=== PATIENT | female | born 1995 | race Caucasian/White ===

== ENCOUNTER → 2016-08-24 | Outpatient (CLI) | payer OTHER ==
--- NOTE | 2016-08-24 22:21 | US ---
EXAMINATION TYPE: US OB >= 14 wk fetus DATE OF EXAM: 08/24/2016 4:30 PM COMPARISON: 04/21/2016 CLINICAL HISTORY: 21-year-old female O36.63X0 Large for dates; Large maternal body; patient is schedu led for on 09-12-2016; smoker TECHNIQUE: Transabdominal (TA) FINDINGS: GESTATIONAL AGE / DATING Physician Established: (36 weeks/6 days) EDC: 09/15/2016 Dates by LMP: (36 weeks/6 days) EDC: 09/15/2016 Dates by First Scan: (36 weeks/0 days) EDC: 09/21/2016 Dates by Current Scan: (35 weeks/4 days +/- 1W) EDC: 09/24/2016 SURVEY IUP: Single PLACENTA: Posterior PREVIA: No Previa. The caudal placental margin measures approximately 3.7 cm from the internal cervi yessi os. ANNIKA: 19.7 cm Normal CERVICAL LENGTH (transabdominal: norm > 3.0cm): 6.1 cm BIOMETRY PRESENTATION: cephalic LIE: oblique BPD: 8.8 cm 35 weeks / 5 days HC: 32.6 cm 37 weeks / 0 days AC: 31.6 cm 35 weeks / 4 days FL: 6.9 cm 35 weeks / 4 days ESTIMATED WEIGHT IN GRAMS: 2746 grams ESTIMATED WEIGHT IN LBS/OZS: 6 lbs. 1 oz. WEIGHT PERCENTAGE BASED ON ESTABLISHED DATES: 25.4% HC/AC: 1.03 Normal FL/AC: 21.87 Normal HEART RATE: 151 bpm RHYTHM: Normal MATERNAL WALL MEASUREMENT: 5.2 cm from skin to anterior uterine wall (if exam limited due to body hab itus). TECHNOLOGIST IMPRESSION: Single, live, IUP,35 weeks/4 days) EDC: 09/24/2016, HR 151BPM. IMPRESSION: 1. Single live intrauterine with estimated gestational age of 36 weeks 6 days by LMP. [facility], [place] nt ultrasound biometry is smaller and just discordant (35 weeks 4 days +/- 1W) placing the child at t he 25th percentile for weight. We do note that as compared to 04/21/2016, EFW% has increased from the 8th percentile. 2. Posterior placenta with the placental tip measuring 3.7 cm from the internal cervical os.
== END | disposition home or self-care (01) ==
LOC: RADUSWWP 14:24
PROVIDERS: ATTEND Obstetrics & Gynecology
DX: O36.63X0 Maternal care for excessive fetal growth, third trimester, not applicable or unspecified (principal); Z3A.35 35 weeks gestation of pregnancy
CPT/HCPCS: 76805

== ENCOUNTER 2016-09-12 06:10 | Inpatient (IN) | payer OTHER ==
[2016-09-12] MEDS ORDERED: CITRIC ACID-SODIUM CITRATE 15 ML CUP PO ONE (06:22)
[2016-09-12] MEDS ORDERED: ceFAZolin 3 GM in SODIUM CHLORIDE 0.9% 100 ML IVPB ONE (06:22)
[2016-09-12 06:31] VITALS: BMI 48.0
[2016-09-12] MEDS: LACTATED RINGERS 1,000 ML IV ONE ×2 (06:32→07:57)
[2016-09-12 07:17] LABS: Basophils % (A) 0 %; CH 26.4; CHCM 30.9; Eosinophils # (A) 0.1 k/uL (0-0.7); Eosinophils % (A) 1 %; HCT 33.1 % (34.0-46.0); HDW 2.59; HGB 10.6 gm/dL (11.4-16.0); Hypochromasia Slight; Luc # (Auto) 0.47; Luc % (Auto) 4; Lymphocytes # (A) 1.6 k/uL (1.0-4.8); Lymphocytes % (A) 15 %; MCH 27.5 pg (25.0-35.0); MCHC 32.1 g/dL (31.0-37.0); MCV 85.6 fL (80.0-100.0); Mean Platelet Volume 8.8; Monocytes # (A) 0.5 k/uL (0-1.0); Monocytes % (A) 4 %; Neutrophils # (A) 8.2 k/uL (1.3-7.7); Neutrophils % (A) 75 %; RBC 3.86 m/uL (3.80-5.40); RDW 14.4 % (11.5-15.5); WBC 10.9 k/uL (4.0-11.0); WBC (Perox) 11.88
[2016-09-12] MEDS ORDERED: KETOROLAC 30 MG/ML 1 ML VIAL ONE (08:03)
[2016-09-12] MEDS ORDERED: ePHEDrine 50 MG/ML 1 ML AMP ONE (08:03)
[2016-09-12] MEDS ORDERED: OXYTOCIN 10 UNIT/ML 1 ML VIAL IM ONE (08:03)
[2016-09-12] MEDS ORDERED: ONDANSETRON 4 MG/2 ML VIAL ONE (08:03)
[2016-09-12] MEDS ORDERED: NALOXONE 0.4 MG/ML 10 ML VIAL IVP PRN (08:37)
[2016-09-12] MEDS ORDERED: diphenhydrAMINE 25 MG CAP PO PRN (08:37)
[2016-09-12] MEDS ORDERED: SIMETHICONE 80 MG CHEWABLE PO PRN (08:37)
[2016-09-12] MEDS ORDERED: ACETAMINOPHEN TAB 325 MG TAB PO PRN (08:37)
[2016-09-12] MEDS ORDERED: LANOLIN CREAM 5 GM TUBE TOPICAL PRN (08:37)
[2016-09-12] MEDS ORDERED: ZOLPIDEM 5 MG TAB PO PRN (08:37)
[2016-09-12] MEDS ORDERED: diphenhydrAMINE 50 MG/ML 1 ML VIAL IVP PRN ×2 (08:37)
[2016-09-12] MEDS ORDERED: diphenhydrAMINE 50 MG CAP PO PRN (08:37)
[2016-09-12] MEDS ORDERED: METOCLOPRAMIDE 5 MG/ML 2 ML VIAL IVP PRN (08:37)
[2016-09-12] MEDS ORDERED: HYDROmorphone PCA 5 MG/25 ML SYRINGE IV PRN (08:37)
[2016-09-12] MEDS ORDERED: ONDANSETRON 4 MG/2 ML VIAL IVP PRN (08:37)
--- NOTE | 2016-09-12 08:42 | P.OP ---
Date of Procedure: 09/12/16 Preoperative Diagnosis: 1. at 39 weeks 4 days 2. previous Postoperative Diagnosis: 1. at 39 weeks 4 days 2. previous Procedure(s) Performed: Repeat low transverse Anesthesia: spinal Surgeon: Hilary Hernandez Pressure Welder #1: Blane Reyes Estimated Blood Loss (ml): 800 IV fluids (ml): 650 Urine output (ml): 100 Pathology: other (Placenta) Condition: stable Disposition: floor Operative Findings: Viable male, Apgars 9, 9, weight 6 lbs. 14 oz. Description of Procedure: Patient was taken to the operating room where spinal anesthesia was found be adequate. She was prepped and draped in normal sterile fashion in dorsal supine position with a leftward tilt. Pfannenstiel skin incision was made the scalpel and carried through to the underlying layer of fascia with the scalpel. Fascia was incised in midline and carried bilaterally with the Schreiber scissors. The superior aspect of the fascial incision was grasped with Girish clamps elevated and the underlying rectus muscles dissected off with the Schreiber's. Attention was then turned to inferior aspect of same incision which in a similar fashion was grasped tented up and the underlying rectus muscles dissected off with the Schreiber's. The rectus muscles were the midline and the peritoneum was identified tented up and entered sharply with the scalpel. The incision was extended superiorly and inferiorly with good visualization of the bladder. The bladder blade was inserted and the vesicouterine peritoneum was incised the Metzenbaums then carried bilaterally and bladder flap created digitally. A low transverse incision was then made on the uterus with the scalpel. This was carried bilaterally and digital manner. 's head delivered atraumatically, nose and mouth bulb suctioned, cord clamped and cut, handed off to waiting nurses. Apgars 9,9 weight 6 lbs. 14 oz. Placenta delivered manually, intact with three-vessel cord. The uterus is exteriorized and cleared of all clots and debris. The uterine incision was closed with 0 Vicryl in a running locked fashion. Second layer of the same sutures used in imbricating fashion to obtain excellent hemostasis. Bladder flap was then reapproximated using 2-0 Vicryl in a running fashion. Both ovaries and tubes appeared normal. The uterus was placed back into the abdomen. The peritoneum was reapproximated using 2-0 Vicryl in a running fashion. The muscles were reapproximated using 2-0 Vicryl in interrupted fashion. The fascia was reapproximated using 0 Vicryl in a running fashion. The subcutaneous tissues closed with 3-0 Vicryl running fashion. The skin was closed juan. Patient tolerated the procedure well, sponge and instrument counts were correct times 2 and she was taken to the recovery room in stable condition.
--- NOTE | 2016-09-12 08:46 | P.HPOB ---
History of Present Illness H&P Date: 09/12/16 Chief Complaint: repeat low transverse 21-year-old presents at 39 weeks and 4 days for repeat low transverse C- section. Review of Systems All systems: negative Constitutional: Denies chills, Denies fever Eyes: denies blurred vision, denies pain Ears, nose, mouth and throat: Denies headache, Denies sore throat Cardiovascular: Denies chest pain, Denies shortness of breath Respiratory: Denies cough Gastrointestinal: Denies abdominal pain, Denies diarrhea, Denies nausea, Denies vomiting Genitourinary: Denies dysuria, Denies hematuria Musculoskeletal: Denies myalgias Integumentary: Denies pruritus, Denies rash Neurological: Denies numbness, Denies weakness Psychiatric: Denies anxiety, Denies depression Endocrine: Denies fatigue, Denies weight change Past Medical History Past Medical History: No Reported History Additional Past Medical History / Comment(s): Obstetric history: First was a section for failure to progress. This is her second and she has had care with me since 6 weeks. A+, abs neg, Rub Imm, RPR Nr, Hep B neg. normal 1hr GTT. GBS neg. History of Any Multi-Drug Resistant Organisms: None Reported Past Surgical History: Section, Orthopedic Surgery Additional Past Surgical History / Comment(s): cyst removed from ovaries and screws in rt ankle Past Anesthesia/Blood Transfusion Reactions: No Reported Reaction Past Psychological History: No Psychological Hx Reported Smoking Status: Current every day smoker Past Alcohol Use History: None Reported Past Drug Use History: None Reported - Past Family History Father History Unknown: Yes Mother Family Medical History: No Reported History Medications and Allergies Home Medications Medication Instructions Recorded Confirmed Type Pnv with Ca,No.72/Iron/FA [Pnv 1 tab PO DAILY 09/07/16 09/12/16 History Plus Multivit Tab] Allergies Allergy/AdvReac Type Severity Reaction Status Date / Time morphine Allergy Rash/Hives, Verified 09/12/16 06:21 swelling Exam Osteopathic Statement: *. No significant issues noted on an osteopathic structural exam other than those noted in the History and Physical/Consult. - Vital Signs Vital signs: Vital Signs Temp Pulse Resp BP Pulse Ox 09/12/16 06:26 96.4 F L 82 15 131/58 96 Intake and Output 09/11/16 09/12/16 09/12/16 22:59 06:59 14:59 Other: Weight 127.006 kg Heart: Regular rate and rhythm Lungs: Clear to auscultation bilaterally Abdomen: Soft, nontender Extremities: Negative Homans sign Results Result Diagrams: 09/12/16 06:59 Abnormal Lab Results - Last 24 Hours (Table) 09/12/16 Range/Units 06:59 Hgb 10.6 L (11.4-16.0) gm/dL Hct 33.1 L (34.0-46.0) % Neutrophils # 8.2 H (1.3-7.7) k/uL Assessment and Plan (1) Previous section Status: Acute Plan: 1. Prep for repeat low transverse
[2016-09-12] MEDS ORDERED: NALOXONE 0.4 MG/ML 1 ML VIAL IV PRN (09:23)
[2016-09-12] MEDS: LACTATED RINGERS 1,000 ML IV SCH (12:26)
[2016-09-12] MEDS: KETOROLAC 30 MG/ML 1 ML VIAL IVP PRN ×2 (14:28→20:31)
[2016-09-13] MEDS: OXYTOCIN 30 UNITS/500 ML NS 30 UNIT in SALINE 1 500ML.BAG IV SCH ×2 (07:46→07:47)
[2016-09-13] MEDS: LACTATED RINGERS 1,000 ML IV SCH (07:46)
[2016-09-13] MEDS: SENNOSIDES-DOCUSATE SODIUM 1 EACH TAB PO SCH ×3 (07:47→20:36)
[2016-09-13 08:08] LABS: Basophils % (A) 0 %; CH 26.7; CHCM 31.5; Eosinophils # (A) 0.1 k/uL (0-0.7); Eosinophils % (A) 1 %; HCT 30.5 % (34.0-46.0); HGB 9.6 gm/dL (11.4-16.0); Hypochromasia Slight; Luc # (Auto) 0.19; Luc % (Auto) 2; Lymphocytes # (A) 1.4 k/uL (1.0-4.8); Lymphocytes % (A) 17 %; MCH 26.6 pg (25.0-35.0); MCHC 31.4 g/dL (31.0-37.0); MCV 84.9 fL (80.0-100.0); Mean Platelet Volume 9.9; Monocytes # (A) 0.4 k/uL (0-1.0); Monocytes % (A) 5 %; Neutrophils # (A) 6.2 k/uL (1.3-7.7); Neutrophils % (A) 74 %; RDW 14.6 % (11.5-15.5); WBC 8.3 k/uL (4.0-11.0); WBC (Perox) 8.85
--- NOTE | 2016-09-13 08:40 | P.PNOBGPC ---
Subjective - Subjective Principal diagnosis: S/P RLTCS POD #1 Interval history: PAtient seen and examined. Denies N/V, F/C, CP, SOB, calf pain. Patient reports: Reports appetite normal, Reports voiding normally, Reports pain well controlled, Reports ambulating normally : doing well Objective - Vital Signs Latest vital signs: Vital Signs Temp Pulse Resp BP Pulse Ox 09/13/16 04:00 98.1 F 62 18 127/61 98 09/12/16 23:54 98.4 F 64 18 128/64 97 09/12/16 20:00 98.3 F 67 18 134/75 97 09/12/16 16:00 98.1 F 65 16 112/51 97 09/12/16 12:00 97.1 F L 69 16 123/61 97 09/12/16 10:45 74 16 137/68 98 09/12/16 10:15 66 16 132/68 09/12/16 09:45 66 16 144/64 99 09/12/16 09:30 69 16 143/64 98 09/12/16 09:15 70 16 158/84 99 09/12/16 09:00 77 16 122/64 99 09/12/16 08:45 96.5 F L 88 16 142/65 100 Intake and Output 09/12/16 09/13/16 09/13/16 22:59 06:59 14:59 Intake Total 300 Output Total 1200 200 Balance -900 -200 Intake: Oral 300 Output: Urine 1200 Uretheral (Sharif) 300 Stool 200 Other: # Voids 1 - Exam Lungs: bilateral: normal Chest: Normal S1, Normal S2 Extremities: Present: normal Abdomen: Present: normal appearance, soft. Absent: distention, tenderness Incision: Present: normal, dry, intact Uterus: Present: normal, firm - Labs Labs: Abnormal Lab Results - Last 24 Hours (Table) 09/13/16 Range/Units 07:53 RBC 3.60 L (3.80-5.40) m/uL Hgb 9.6 L (11.4-16.0) gm/dL Hct 30.5 L (34.0-46.0) % Assessment and Plan (1) Previous section Current Visit: Yes Status: Resolved Code(s): Z98.891 - HISTORY OF UTERINE SCAR FROM PREVIOUS SURGERY SNOMED Code(s): 203075113 (2) S/P repeat low transverse Narrative/Plan: 1. continue pp care 2. d/c SECURITY REP and change to po pain meds. 3. increase ambulation Current Visit: Yes Status: Acute Code(s): Z98.891 - HISTORY OF UTERINE SCAR FROM PREVIOUS SURGERY SNOMED Code(s): 801926318
[2016-09-13] MEDS: Acetaminophen-Codeine 300-30mg TAB PO PRN ×3 (09:10→20:36)
--- NOTE | 2016-09-13 10:29 | P.PN ---
Progress Note - Text Postoperative day 1 status post section under spinal anesthesia, and intrathecal morphine given for postoperative analgesia, patient doing well, there is no anesthesia related complications, further management as per her primary team
[2016-09-13] MEDS: IBUPROFEN 600 MG TAB PO PRN ×2 (11:44→16:52)
[2016-09-14] MEDS: IBUPROFEN 600 MG TAB PO PRN (00:49)
[2016-09-14] MEDS: Acetaminophen-Codeine 300-30mg TAB PO PRN ×2 (06:19→11:02)
--- NOTE | 2016-09-14 08:00 | P.DS ---
Providers Date of admission: 09/12/16 06:10 Expected date of discharge: 09/14/16 Attending physician: Hilary Hernandez Primary care physician: Stated None - Discharge Diagnosis(es) (1) Previous section Current Visit: Yes Status: Resolved (2) S/P repeat low transverse Current Visit: Yes Status: Acute Hospital Course: Patient presented for RLTCS and underwent this procedure without complication. She had an uneventful post op course. Denies N/V, F/C, CP, SOB, calf pain. She will be discharged home POD #2 in stable condition to follow up with me in 1 week. Plan - Discharge Summary New Discharge Prescriptions: Acetaminophen-Codeine 300-30mg [Tylenol #3] 2 tab PO Q6H PRN #30 tablet PRN Reason: Pain Ibuprofen [Motrin] 600 mg PO Q6HR PRN #30 tab PRN Reason: Mild Pain Or Fever >= 100.5 Discharge Medication List Pnv with Ca,No.72/Iron/FA [Pnv Plus Multivit Tab] 1 tab PO DAILY [History] Acetaminophen-Codeine 300-30mg [Tylenol #3] 2 tab PO Q6H PRN #30 tablet [Rx] Ibuprofen [Motrin] 600 mg PO Q6HR PRN #30 tab 09/14/16 [Rx] Follow up Appointment(s)/Referral(s): Hilary Hernandez DO [Doctor of Osteopathic Medicine] - 1 Week Discharge Disposition: HOME SELF-CARE
[2016-09-14 09:46] VITALS: BP 141/75; PULSE 83; RESP 18; TEMP 98.6
[2016-09-14] MEDS: SENNOSIDES-DOCUSATE SODIUM 1 EACH TAB PO SCH (11:01)
== END 2016-09-14 11:22 | disposition home or self-care (01) | DRG 766 ==
LOC: 4FBP 06:10
PROVIDERS: ADMIT Obstetrics & Gynecology; ATTEND Obstetrics & Gynecology
PROC: 10D00Z1 Extraction of Products of Conception, Low, Open Approach (ICD-10-PCS; principal; 2016-09-12 08:13)
DX: O34.211 Maternal care for low transverse scar from previous cesarean delivery (principal); F17.200 Nicotine dependence, unspecified, uncomplicated; Z37.0 Single live birth; O99.334 Smoking (tobacco) complicating childbirth; Z3A.39 39 weeks gestation of pregnancy; Z88.5 Allergy status to narcotic agent
CPT/HCPCS: 85025; 86850; 86900; 86901; 88307

== ENCOUNTER → 2023-02-23 | Outpatient (CLI) | payer OTHER ==
[2023-02-23 13:40] LABS: Basophils # (A) 0.04 X 10*3/uL (0.00-0.10); Basophils % (A) 0.4 %; Eosinophils # (A) 0.11 X 10*3/uL (0.04-0.35); HCT 40.5 % (37.2-46.3); HGB 12.9 d/dL (12.0-15.0); Lymphocytes # (A) 2.82 X 10*3/uL (0.90-5.00); Lymphocytes % (A) 25.8 %; MCH 28.5 pg (27.0-32.0); MCHC 31.9 d/dL (32.0-37.0); MCV 89.4 FL (80.0-97.0); Mean Platelet Volume 12.5 FL (9.5-12.2); Monocytes # (A) 0.54 X 10*3/uL (0.20-1.00); Monocytes % (A) 4.9 %; NRBC Per 100 WBC 0 X 10*3/uL (0.00-0.01); Neutrophils # (A) 7.39 X 10*3/uL (1.80-7.70); Neutrophils % (A) 67.5 %; Platelet Count 277 X 10*3/uL (140-440); RBC 4.53 X 10*6/uL (4.10-5.20); RDW 13.8 % (11.5-14.5); WBC 10.94 X 10*3/uL (4.50-10.00)
== END | disposition home or self-care (01) ==
LOC: LABPAT 09:09
PROVIDERS: ATTEND Obstetrics & Gynecology
DX: Z30.2 Encounter for sterilization (principal)
CPT/HCPCS: 85025

== ENCOUNTER → 2023-03-13 | Day surgery (SDC) | payer OTHER ==
--- NOTE | 2023-03-12 10:32 | P.HPIHPCON ---
History of Present Illness H&P Date: 03/12/23 Chief Complaint: Desire for permanent sterilizaiton and risk reduction Ms. Olivares is a 27 year old who presents for bilateral salpingectomy for permanent sterilization and risk reduction. Consent for Procedure: I have explained the operation/procedure to the patient, including the risks, benefits, side effects, alternative therapies (including not receiving the proposed treatment or service), the likelihood of the patient achieving his/her goals, and potential recuperation problems for the procedure/sedation/analgesia, as well as any blood products, if indicated. I also explained to the patient the risks, benefits and side effects of the alternatives, as well as the risks related to not receiving the proposed procedure, care, treatment, or services. Past Medical History Past Medical History: No Reported History Additional Past Medical History / Comment(s): migraines-takes inderal for History of Any Multi-Drug Resistant Organisms: None Reported Past Surgical History: Section, Orthopedic Surgery Additional Past Surgical History / Comment(s): ovarian cysts removed, ORIF rt ankle, C/S x2 Past Anesthesia/Blood Transfusion Reactions: No Reported Reaction Smoking Status: Current every day smoker - Past Family History Father History Unknown: Yes Mother Family Medical History: No Reported History Medications and Allergies Home Medications Medication Instructions Recorded Confirmed Type Propranolol HCl [Inderal] 80 mg PO DAILY 03/07/23 03/07/23 History norgestimate-ethinyl estradioL 1 tab PO DAILY 03/07/23 03/07/23 History [Sprintec 28 Day Tablet] Allergies Allergy/AdvReac Type Severity Reaction Status Date / Time morphine Allergy Rash/Hives, Verified 03/07/23 08:59 swelling Surgical - Exam Focused phyiscal exam is performed. This is a healthy-appearing female in no apparent distress. Breathing is non-labored. Abdomen is soft, non-tender, and non-distended. Extremities are non-tender and non-edematous. Assessment and Plan Assessment: 27 year old presenting for permanent sterilization and risk reduction via Laparoscopic Bilateral Salpingectomy. Plan: Risks, benefits, and alternatives to Laparoscopic Bilateral Salpingectomy, Possible Laparotomy are discussed with the patient including risk of regret, bleeding, infection, damage to surrounding structures including bladder/bowel/ureters, and post-operative VTE. I discussed with the patient that this procedure is non-reversible and she will never be able to become again without IVF. The patient understands these risks and desires to proceed with surgery as scheduled. Time with Patient: Less than 30 (10 minutes)
[~2023-03-13] MED LIST: DEXAMETHASONE SOD PHOSPHATE 4 MG/ML 1 ML VIAL IV ONE; GLYCOPYRROLATE 0.2 MG/ML 2 ML VIAL ONE; HYDROmorphone (PF) 1 MG/ML ONE; KETOROLAC 15 MG/ML 1 ML VIAL ONE; LACTATED RINGERS 1,000 ML IV SCH; LIDOCAINE 1% (10MG/ML) FOR IV START INTRADERMA PRN; LIDOCAINE 2% INJ 20 MG/ML (2 ML VIAL) ONE; MIDAZOLAM 2 MG/2 ML VIAL IV PRN; MIDAZOLAM 2 MG/2 ML VIAL ONE; NEOSTIGMINE 1 MG/ML 10 ML VIAL ONE; ONDANSETRON 4 MG/2 ML VIAL IVP ONE; PROPOFOL 10 MG/ML 20 ML VIAL IV ONE; Pre Op ABX Message 1 EACH MISC MISCELLANE ONE; ROCURONIUM 10 MG/ML (5 ML VIAL) IV ONE; SODIUM CHLORIDE 0.9% 1,000 ML IV ONE; SUCCINYLCHOLINE CHLORIDE 200 MG/10 ML VIAL IV ONE; diphenhydrAMINE 50 MG/ML 1 ML VIAL ONE; fentaNYL (PF) 50 MCG/ML 2 ML AMP ONE
[2023-03-13 11:47] VITALS: TEMP 97
[2023-03-13] MEDS: HYDROmorphone 0.5 MG/0.5 ML SYRINGE IVP PRN ×2 (12:09→12:15)
--- NOTE | 2023-03-13 12:46 | P.OP ---
Date of Procedure: 03/13/23 Preoperative Diagnosis: 1. Desires Permanent Sterilization and Risk Reduction Postoperative Diagnosis: 1. Desires Permanent Sterilization and Risk Reduction 2. 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 Risks, benefits, and alternatives to Laparoscopic Bilateral Salpingectomy, Possible Laparotomy are discussed with the patient including risk of regret, bleeding, infection, damage to surrounding structures including bladder/bowel/ureters, and post-operative VTE. I discussed with the patient that this procedure is non-reversible and she will never be able to become again without IVF. The patient understands these risks and desires to proceed with surgery as scheduled. Operative Findings: Severe adhesive disease in the pelvis with diffuse omental adhesions to the anterior abdominal wall and the right fallopian tube adherent to omentum and the anterior abdominal wall. Uterus, bilateral fallopian tubes, and ovaries otherwise unremarkable. Appendix visualized to be grossly normal. Description of Procedure: Patient was taken to the OR with IV fluid running and pneumatic compression stockings on both legs. General anesthesia was obtained without difficulty. The patient was placed in the dorsal lithotomy position with Jhon-type stirrups with knees bent at 30 degree angles. The patient is prepared and draped. The bladder was emptied. A speculum was placed into the vagina. A sponge stick is insterted for manipulation. A horizontal skin incision was made at the umbilical fold. The periumbilical skin was manually elevated. The Veress needle was introduced into the peritoneal cavity at a straight angle without difficulty. A saline drop test was performed to validate intraperitoneal placement. The pneumoperitoneum was established with CO2 gas to a pressure of 15mmHg. A 5mm trocar was inserted into the abdomen under direct laparoscopic visualization. Intraabdominal survey revealed lack of any visceral or vascular injury. The pelvic and abdominal anatomy was noted as above. Two additional laparoscopic assit ports were placed in the right and left lower quadrants. The pelvic and abdominal findings were as noted above. A Ligasure device was used for lysis of adhesions to remove omentum from the anterior abdominal wall and the right fallopian tube was cauterized and cut away from the anterior abdominal wall. A Luna Grasper was used to pickling operator the fimbriated end of the left fallopian tube. The LigaSure device was used to seal and ligate the fallopian tube sequentially to the level of the uterine cornua. The fallopian tube was then transected and removed through the laparoscopic port. This process was repeated on the right side. Excellent hemostasis was noted at the end of the case. The patient tolerated the procedure well. All instruments were removed from the abdomen and vagina, and all counts were correct times two. The patient was taken to the recovery room in stable condition.
[2023-03-13 12:47] VITALS: RESP 14
[2023-03-13 13:05] VITALS: BP 100/58; PULSE 59
== END | disposition home or self-care (01) ==
LOC: OR 08:37
PROVIDERS: ATTEND Obstetrics & Gynecology
DX: Z30.2 Encounter for sterilization (principal); K21.9 Gastro-esophageal reflux disease without esophagitis; N83.8 Other noninflammatory disorders of ovary, fallopian tube and broad ligament; N73.6 Female pelvic peritoneal adhesions (postinfective); Z88.5 Allergy status to narcotic agent; Z79.3 Long term (current) use of hormonal contraceptives; Z98.890 Other specified postprocedural states
CPT/HCPCS: 58661; 81025; 88302; J2250; J0330; J1200; J1100; J2710; J2405; J3010; J1170 ×2; J1885; J2704; J2001